=== PATIENT | female | born 1985 | race Asian ===

== ENCOUNTER 2016-04-26 07:34 | Inpatient (IN) | payer OTHER ==
[2016-04-26] MEDS ORDERED: Oxytocin in LR* 20 UNITS/1,000 ML BAG IVPB SCH (09:00)
[2016-04-26] MEDS ORDERED: Oxytocin in LR* 20 UNITS/1,000 ML BAG IVPB ONE (09:05)
[2016-04-26 09:39] LABS: Hematocrit 34 % (35-47); Hemoglobin 10.9 g/dl (12.0-16.0); Mean Corpuscular HGB Conc 32 g/dl (31-36); Mean Corpuscular Hemoglobin 26 pg (27-31); Mean Corpuscular Volume 80 fL (80-97); Mean Platelet Volume 9 um3 (7.4-10.4); Red Blood Count 4.28 10^6/ul (4.0-5.4); Red Cell Distribution Width 15 % (10.5-15); White Blood Count 8.7 10^3/ul (3.5-10.8)
[2016-04-26] MEDS ORDERED: OBEPIDURAL* 250 ML ONE (12:20)
[2016-04-26] MEDS ORDERED: Phenylephrine IV* 40 MCG/ML 10 ML SYRINGE ONE (12:50)
[2016-04-26] MEDS ORDERED: Famotidine TAB* 20 MG PO PRN (13:18)
[2016-04-26] MEDS ORDERED: Sodium Citrate/Citric Acid* 15 ML UDC PO PRN (13:18)
[2016-04-26] MEDS ORDERED: Phenylephrine IV* 40 MCG/ML 10 ML SYRINGE IV PUSH PRN ×2 (13:18)
[2016-04-26] MEDS ORDERED: Witch Hazel PAD* JAR TOPICAL PRN (14:56)
[2016-04-26] MEDS ORDERED: Dibucaine 1% 28.35 GM TUBE PR PRN (14:56)
[2016-04-26] MEDS ORDERED: Acetaminophen TAB* 325 MG PO PRN (14:56)
[2016-04-26] MEDS ORDERED: Glycerin ADULT SUPP PR PRN (14:56)
[2016-04-26] MEDS ORDERED: Misoprostol TAB* 200 MCG ONE (16:44)
[2016-04-26] MEDS ORDERED: Lidocaine 1% INJ* 10 MG/ML 30 ML SDV ONE (16:45)
[2016-04-26] MEDS ORDERED: Simethicone TAB* 80 MG TAB.CHEW PO SCH (17:30)
[2016-04-26] MEDS: Docusate CAP* 100 MG PO SCH (20:58)
[2016-04-27] MEDS: Ibuprofen TAB* 600 MG PO PRN ×4 (00:28→21:15)
[2016-04-27 07:12] LABS: Hematocrit 28 % (35-47); Mean Corpuscular HGB Conc 32 g/dl (31-36); Mean Corpuscular Hemoglobin 26 pg (27-31); Mean Corpuscular Volume 80 fL (80-97); Mean Platelet Volume 9 um3 (7.4-10.4); Red Blood Count 3.45 10^6/ul (4.0-5.4); Red Cell Distribution Width 16 % (10.5-15); White Blood Count 10.2 10^3/ul (3.5-10.8)
[2016-04-27] MEDS: Docusate CAP* 100 MG PO SCH ×3 (08:13→21:14)
[2016-04-27] MEDS: Ferrous Gluconate TAB* 324 MG TAB PO SCH ×2 (08:13→21:14)
[2016-04-27] MEDS: OBEPIDURAL* 250 ML EPIDURAL SCH (20:01)
[2016-04-28] MEDS: Ibuprofen TAB* 600 MG PO PRN (04:58)
[2016-04-28] MEDS: Docusate CAP* 100 MG PO SCH (07:42)
[2016-04-28] MEDS: Ferrous Gluconate TAB* 324 MG TAB PO SCH (07:42)
[2016-04-28 08:36] VITALS: BP 105/63
== END 2016-04-28 11:00 | disposition home or self-care (01) | DRG 775 ==
LOC: MCHOBOUT 07:34 → MCHOB 09:09
PROVIDERS: ADMIT Obstetrics & Gynecology; ATTEND Obstetrics & Gynecology
PROC: 10E0XZZ Delivery of Products of Conception, External Approach (ICD-10-PCS; principal; 2016-04-26)
PROC: 0KQM0ZZ Repair Perineum Muscle, Open Approach (ICD-10-PCS; 2016-04-26)
PROC: 3E0P7GC Introduction of Other Therapeutic Substance into Female Reproductive, Via Natural or Artificial Opening (ICD-10-PCS; 2016-04-26)
PROC: 4A1HXCZ Monitoring of Products of Conception, Cardiac Rate, External Approach (ICD-10-PCS; 2016-04-26)
PROC: 3E033VJ Introduction of Other Hormone into Peripheral Vein, Percutaneous Approach (ICD-10-PCS; 2016-04-26)
DX: O48.0 Post-term pregnancy (principal); O90.81 Anemia of the puerperium; O70.1 Second degree perineal laceration during delivery; Z3A.41 41 weeks gestation of pregnancy; Z37.0 Single live birth; O77.0 Labor and delivery complicated by meconium in amniotic fluid; O34.219 Maternal care for unspecified type scar from previous cesarean delivery
CPT/HCPCS: 36415; 85025; 86850; 86900; 86901; A9270-GY